=== PATIENT | male | born 1995 ===

== ENCOUNTER 2020-10-27 02:37 | Outpatient (CLI) | payer OTHER | END 2020-10-27 02:38 | disposition critical access hospital (66) | LOC: EMS 02:37 | DX: R46.4 Slowness and poor responsiveness (principal) | CPT/HCPCS: A0425; A0427 ==

== ENCOUNTER 2020-10-27 02:57 | Emergency (ER) | payer OTHER ==
--- NOTE | 2020-10-27 03:04 | ED Physician Documentation ---
PD HPI ALTERED MENTAL STATUS - Stated complaint Stated Complaint: UNRESPONSIVE S/P ETOH - History obtained from History obtained from: EMS, Other (patient not responding verbally, cannot contribute to HPI/ROS) - History of Present Illness Quality / character: Less responsive - Additional information Additional information: patient is brought in by ambulance. Patient is not responding verbally nor fo llowing commands and thus he is unable to contribute to HPI, ROS. Per medic report, patients friends on scene said that patient had been drinking whiskey earlier tonight, and when they checked on him approximately 30 minutes prior to arrival to this emergency department, he was found on the ground with a small abrasion to his head suggestive of an unwitnessed fall. Review of Systems Unable to obtain: Unresponsive, Intoxicated PD PAST MEDICAL HISTORY - Past Medical History Past Medical History: No - Present Medications Home Medications: Ambulatory Orders Medication Instructions Recorded Confirmed No Known Home Medications 10/27/20 10/27/20 - Allergies Allergies/Adverse Reactions: Allergies Allergy/AdvReac Type Severity Reaction Status Date / Time No Known Drug Allergies Allergy Verified 10/27/20 04:14 PD ED PE NORMAL - Vitals Vital signs reviewed: Yes - General General: No acute distress, Well developed/nourished - HEENT HEENT: PERRL - Cardiac Cardiac: RRR, No murmur - Respiratory Respiratory: No respiratory distress, Clear bilaterally - Abdomen Abdomen: Soft, Non distended - Derm Derm: Normal color, Warm and dry - Extremities Extremities: No deformity PD ED PE EXPANDED - General General: Unresponsive, Other (cervical collar in place) - HEENT HEENT Visual: 1 - abrasion 2 - abrasion Results - Vitals Vitals: Vital Signs - 24 hr 10/27/20 10/27/20 10/27/20 02:58 03:09 03:33 Temperature 35.7 C L 35.5 C L 36.1 C L Heart Rate 88 79 Respiratory 19 9 L Rate Blood Pressure 128/70 115/77 O2 Saturation 98 100 10/27/20 10/27/20 10/27/20 03:34 04:04 04:30 Temperature 36.1 C L 36.1 C L 36.2 C L Heart Rate 80 75 79 Respiratory 12 11 L 12 Rate Blood Pressure 113/76 113/71 111/75 O2 Saturation 100 100 100 10/27/20 10/27/20 10/27/20 05:00 05:30 06:00 Temperature 36.2 C L 36.3 C L 36.3 C L Heart Rate 90 85 85 Respiratory 13 18 13 Rate Blood Pressure 118/60 111/65 115/77 O2 Saturation 100 97 100 10/27/20 07:12 Temperature 36.3 C L Heart Rate 88 Respiratory 16 Rate Blood Pressure 118/78 O2 Saturation 100 Oxygen O2 Source Room air - Labs Labs: Laboratory Tests 10/27/20 10/27/20 10/27/20 03:00 03:00 05:31 WBC 9.9 RBC 4.93 Hgb 14.9 Hct 43.7 MCV 88.6 MCH 30.2 MCHC 34.1 RDW 12.8 Plt Count 277 MPV 9.9 Neut # (Auto) 6.3 Lymph # (Auto) 2.8 [place] # (Auto) 0.6 Eos # (Auto) 0.1 Baso # (Auto) 0.1 Absolute Nucleated RBC 0.00 Nucleated RBC % 0.0 Sodium 137 Potassium 3.3 L Chloride 105 Carbon Dioxide 20 L Anion Gap 12.0 BUN 13 Creatinine 0.7 Estimated GFR (MDRD) 141 Glucose 154 H Calcium 8.7 Total Bilirubin 0.6 AST 32 ALT 48 Alkaline Phosphatase 61 Total Protein 7.4 Albumin 4.7 Globulin 2.7 Albumin/Globulin Ratio 1.7 Lipase 21 L Urine Color YELLOW Urine Clarity CLEAR Urine pH 5.5 Ur Specific [place] 1.020 Urine Protein NEGATIVE Urine Glucose (UA) NEGATIVE Urine Ketones 15 H Urine Occult Blood NEGATIVE Urine Nitrite NEGATIVE Urine Bilirubin NEGATIVE Urine Urobilinogen 0.2 (NORMAL) Ur Leukocyte Esterase NEGATIVE Ur Microscopic Review NOT INDICATED Urine Culture Comments NOT INDICATED Urine Opiates Screen NEGATIVE Ur Oxycodone Screen NEGATIVE Urine Methadone Screen NEGATIVE Ur Propoxyphene Screen NEGATIVE Ur Barbiturates Screen NEGATIVE Ur Tricyclics Screen NEGATIVE Ur Phencyclidine Scrn NEGATIVE Ur Amphetamine Screen NEGATIVE U Methamphetamines Scrn NEGATIVE U Benzodiazepines Scrn NEGATIVE Urine Cocaine Screen NEGATIVE U Cannabinoids Screen NEGATIVE Ethyl Alcohol 227.3 - Rads (name of study) CTH Radiology: Prelim report reviewed, See rad report CT cervical spine Radiology: Prelim report reviewed, See rad report PD MEDICAL DECISION MAKING - ED course Complexity details: reviewed results, re-evaluated patient, considered differential, d/w patient ED course: patient presents after being found on the ground by friends darya. He had been drinking whiskey earlier and his alcohol level in the emergency department on blood draw tonight is 227. He has small facial abrasions consistent with a fall, although this was not witnessed. He has an unremarkable CT head and CT cervical spine. During the course of his ED stay, patient gradually and steadily became increasingly awake and alert. Eventually he was awake, alert, and oriented times three. He is smiling, conversant, and appropriate. He has a normal neurologic exam at this point, and says he feels no discomfort anywhere. He is comfortable with discharge home. Departure - Departure Disposition: 01 Home, Self Care Clinical Impression: Alcohol intoxication, Head injury Condition: Good Instructions: ED Alcohol Intoxication, ED Head Injury Closed Sleep Mon Follow-Up: CAROLYN Godfrey [Provider Group] Discharge Date/Time: 10/27/20 07:12
[2020-10-27 03:11] LABS: BASOPHILS # (AUTO) 0.1 10^3/uL (0.0-0.1); BASOPHILS % (AUTO) 0.6 %; EOSINOPHILS # (AUTO) 0.1 10^3/uL (0.0-0.7); EOSINOPHILS % (AUTO) 0.5 %; HCT - HEMATOCRIT 43.7 % (42.0-52.0); HGB - HEMOGLOBIN 14.9 g/dL (14.0-18.0); LYMPHOCYTES # (AUTO) 2.8 10^3/uL (1.5-3.5); LYMPHOCYTES % (AUTO) 28.5 %; MEAN CORPUSCULAR HEMOGLOBIN 30.2 pg (27.0-31.0); MEAN CORPUSCULAR HGB CONC 34.1 g/dL (32.0-36.0); MEAN CORPUSCULAR VOLUME 88.6 fL (80.0-94.0); MEAN PLATELET VOLUME 9.9 fL (7.4-11.4); MONOCYTES # (AUTO) 0.6 10^3/uL (0.0-1.0); MONOCYTES % (AUTO) 6.4 %; NEUTROPHILS # (AUTO) 6.3 10^3/uL (1.5-6.6); NEUTROPHILS % (AUTO) 63.4 %; PLT - PLATELET COUNT 277 10^3/uL (130-450); RED BLOOD COUNT 4.93 10^6/uL (4.70-6.10); RED CELL DISTRIBUTION WIDTH 12.8 % (12.0-15.0); WHITE BLOOD COUNT 9.9 x10^3/uL (4.8-10.8)
[2020-10-27 03:21] LABS: ALBUMIN 4.7 g/dL (3.2-5.5); ALBUMIN/GLOBULIN RATIO 1.7 (1.0-2.2); BILIRUBIN,TOTAL 0.6 mg/dL (0.2-1.0); CALCIUM 8.7 mg/dL (8.5-10.3); CREATININE 0.7 mg/dL (0.6-1.2); ETOH - ETHANOL 227.3 mg/dL; POTASSIUM 3.3 mmol/L (3.5-5.0); TOTAL PROTEIN 7.4 g/dL (6.7-8.2)
[2020-10-27] MEDS ORDERED: SODIUM CHLORIDE 0.9% 1,000 ML IV STA (04:04)
[2020-10-27 05:36] LABS: MUDS CUTOFF CONCENTRATIONS CUTOFF CONC BELOW:
[2020-10-27 05:41] LABS: BILIRUBIN,URINE NEGATIVE (NEGATIVE); GLUCOSE, URINE (UA) NEGATIVE (NEGATIVE); KETONES,URINE (UA) 15 mg/dL (NEGATIVE); LEUKOCYTE ESTERASE, URINE NEGATIVE (NEGATIVE); NITRITE,URINE NEGATIVE (NEGATIVE); OCCULT BLOOD,URINE NEGATIVE (NEGATIVE); PH,URINE 5.5 PH (5.0-7.5); PROTEIN,URINE NEGATIVE (NEGATIVE); UROBILINOGEN,URINE 0.2 (NORMAL) E.U./dL (NORMAL)
[2020-10-27 05:42] LABS: CLARITY,URINE CLEAR (CLEAR)
[2020-10-27 05:51] LABS: AMPHETAMINE SCREEN,URINE NEGATIVE (NEGATIVE); BARBITURATE SCREEN,UR NEGATIVE (NEGATIVE); BENZODIAZEPINES SCREEN, URINE NEGATIVE (NEGATIVE); COCAINE SCREEN URINE NEGATIVE (NEGATIVE); METHADONE SCREEN, URINE NEGATIVE (NEGATIVE); METHAMPHETAMINES SCREEN, URINE NEGATIVE (NEGATIVE); OPIATE SCREEN, URINE NEGATIVE (NEGATIVE); OXYCODONE SCREEN, URINE NEGATIVE (NEGATIVE); PROPOXYPHENE SCREEN, URINE NEGATIVE (NEGATIVE); THC CANNABINOID SCREEN, URINE NEGATIVE (NEGATIVE); TRICYCLIC ANTIDEPRESSANT,URINE NEGATIVE (NEGATIVE)
[2020-10-27 07:14] VITALS: BP 118/78
--- NOTE | 2020-10-27 09:34 | CT Report ---
PROCEDURE: HEAD WO INDICATIONS: head injury, AMS TECHNIQUE: Noncontrast 4.5 mm thick angled axial sections acquired from the foramen magnum to the vertex. For r adiation dose reduction, the following was used: automated exposure control, adjustment of mA and/or kV according to patient size. COMPARISON: Correlation is made with the accompanying cervical spine CT 10/27/2020. FINDINGS: Image quality: Excellent. CSF spaces: Basal cisterns are patent. No extra-axial fluid collections. Ventricles are normal in size and shape. Brain: No midline shift. No intracranial masses or hemorrhage. Wetzel-white matter interface is norm al. Skull and face: Calvarium and visualized facial bones are intact, without suspicious lesions. Sinuses: Visualized sinuses and mastoids are clear. IMPRESSION: Normal noncontrast head CT. Note: No significant discrepancy from the preliminary report. Reviewed by: Norman Cagle MD on 10/27/2020 8:32 AM [facility] Approved by: Norman Cagle MD on 10/27/2020 8:32 AM [facility] Station ID: [id number]
--- NOTE | 2020-10-27 09:35 | CT Report ---
PROCEDURE: CERVICAL SPINE WO INDICATIONS: fall, AMS TECHNIQUE: Noncontrast 3 mm thick sections acquired from the skull base to the T4 level. Sagittal and coronal r eformats were then constructed. For radiation dose reduction, the following was used: automated exp osure control, adjustment of mA and/or kV according to patient size. COMPARISON: Correlation is made with the accompanying head CT, 10/27/2020. FINDINGS: Image quality: Excellent. Bones: No fractures or dislocations. Visualized superior ribs are intact. Soft tissues: Prevertebral soft tissues are normal in thickness. No paravertebral hematomas. No ap ical pneumothoraces. Note is made of mild intravenous gas, which is not considered to be frankly pat hologic. IMPRESSION: Negative for fracture. Note: No significant discrepancy from the preliminary report. Reviewed by: Norman Cagle MD on 10/27/2020 8:34 AM [facility] Approved by: Norman Cagle MD on 10/27/2020 8:34 AM AL[facility] Station ID: [id number]
== END 2020-10-27 07:12 | disposition home or self-care (01) ==
LOC: ED 02:57
DX: F10.929 Alcohol use, unspecified with intoxication, unspecified (principal); Y90.7 Blood alcohol level of 200-239 mg/100 ml; S09.90XA Unspecified injury of head, initial encounter; S00.01XA Abrasion of scalp, initial encounter; S00.81XA Abrasion of other part of head, initial encounter; W19.XXXA Unspecified fall, initial encounter
CPT/HCPCS: 36415; 80053; 80306; 80320; 81001; 81003; 83690; 85025; 87086; 96360; 99281